=== PATIENT | female | born 1965 | race Caucasian/White ===

== ENCOUNTER 2018-05-26 09:30 | Emergency (ER) | payer MEDICARE ==
[~2018-05-26] VITALS: Ht 154.9 cm; Wt 81.0 kg
[~2018-05-26 09:30] MED LIST: ALPR-624 PO; DULO-31 PO; EST1T PO; HYDR-4353 PO; HYDR-4383 PO; IBUP-1984 PO; TOP100T PO
[2018-05-26 09:45] VITALS: BP 164/78
[2018-05-26] MEDS ORDERED: ketorolac trometh. 30mg/ml inj. IM ONE (11:05)
[2018-05-26] MEDS ORDERED: TRAM50TA2 PO (11:12)
[2018-05-26] MEDS ORDERED: METH4TAB81 PO (11:12)
== END 2018-05-26 12:55 | disposition home or self-care (01) ==
LOC: ER 09:33
DX: G89.29 Other chronic pain (principal); M25.511 Pain in right shoulder; Z90.710 Acquired absence of both cervix and uterus; Z98.890 Other specified postprocedural states; Z98.51 Tubal ligation status; Z79.899 Other long term (current) drug therapy
CPT/HCPCS: 73030; 96372; 99283; J1885

== ENCOUNTER 2022-02-11 12:19 | Emergency (ER) | payer MEDICARE ==
[~2022-02-11] VITALS: Ht 154.9 cm; Wt 71.4 kg
[~2022-02-11 12:19] MED LIST changes: +METH4TAB81 PO
[2022-02-11 13:18] VITALS: BP 170/79
[2022-02-11] MEDS ORDERED: morphine 4 MG/ML inj SYRINge IM ONE (16:35)
[2022-02-11] MEDS ORDERED: LIDO700A32 TOP (17:22)
== END 2022-02-11 17:40 | disposition home or self-care (01) ==
LOC: ER 12:20
DX: M54.50 Low back pain, unspecified (principal); G89.29 Other chronic pain; F32.A Depression, unspecified; Z87.442 Personal history of urinary calculi; Z87.440 Personal history of urinary (tract) infections; Z90.710 Acquired absence of both cervix and uterus; Z98.51 Tubal ligation status; Z98.890 Other specified postprocedural states; Z79.899 Other long term (current) drug therapy
CPT/HCPCS: 96372; 99283; J2270